=== PATIENT | male | born 1940 | race Native Hawaiian/Other Pacific Islander ===

== ENCOUNTER 2018-03-31 11:05 | Emergency (ER) | payer OTHER ==
[~2018-03-31] VITALS: Ht 180.3 cm; Wt 73.5 kg
[2018-03-31 12:50] VITALS: BP 138/88; TEMP 98
== END 2018-03-31 12:50 | disposition home or self-care (01) ==
LOC: ED 11:05
PROC: 0T2BX0Z Change Drainage Device in Bladder, External Approach (ICD-10-PCS; principal; 2018-03-31)
DX: C67.9 Malignant neoplasm of bladder, unspecified (principal); T83.091A Other mechanical complication of indwelling urethral catheter, initial encounter
CPT/HCPCS: 99281